=== PATIENT | female | born 1955 | race Caucasian/White ===

== ENCOUNTER → 2017-12-07 | Outpatient (CLI) | payer OTHER ==
[~2017-12-07] VITALS: Ht 165.1 cm; Wt 102.5 kg
[~2017-12-07] MED LIST: ANTIVERT25 MG PO; CIPRO500 MG PO; CYANOCOBALAM1000 MCG PO; FLOMAX0.4 MG PO; IBUPROFEN600 MG PO; LEXAPRO5 MG PO; LISINOPRIL-HCT1 EACH PO; LO-DOSE ASPIRIN81 M1 PO; MIRALAX255 GM PO; MOBIC15 MG PO; PERCOCET 5/31 TABLET PO; PROTONIX40 MG PO; VITAMIN D310000 UNI1 PO; ZOFRAN4 MG PO
[2017-12-07 10:34] LABS: HEMATOCRIT 47.2 % (36.0-46.0); HEMOGLOBIN 15.4 G/DL (11.9-15.5); MCH 28.2 PG (29.0-34.0); MCHC 32.6 G/DL (30.0-36.0); MCV 86.3 FL (83-99); PLATELET COUNT 414 K/uL (156-360); RBC DIS.WIDTH-CV 12.8 % (11.8-14.6); RBC DIS.WIDTH-SD 40.1 % (39-53); RED BLOOD COUNT 5.47 M/uL (3.80-5.20); WHITE BLOOD COUNT 11.9 K/uL (4.1-10.2)
[2017-12-07 10:40] LABS: INTER. NORMALIZED RATIO 1.1
[2017-12-07 10:43] LABS: PTT 25.9 SEC (25-37)
== END | disposition home or self-care (01) ==
LOC: AMB 10:04
PROVIDERS: Internal Medicine
PROC: 0DBE8ZX Excision of Large Intestine, Via Natural or Artificial Opening Endoscopic, Diagnostic (ICD-10-PCS; principal; 2017-12-07)
DX: K62.89 Other specified diseases of anus and rectum (principal); R19.7 Diarrhea, unspecified; K57.30 Diverticulosis of large intestine without perforation or abscess without bleeding; Z86.010 Personal history of colon polyps; D68.2 Hereditary deficiency of other clotting factors; D68.51 Activated protein C resistance; I10 Essential (primary) hypertension; K21.9 Gastro-esophageal reflux disease without esophagitis; E78.5 Hyperlipidemia, unspecified; E53.8 Deficiency of other specified B group vitamins; Z86.711 Personal history of pulmonary embolism; Z86.72 Personal history of thrombophlebitis; Z79.82 Long term (current) use of aspirin; Z80.3 Family history of malignant neoplasm of breast; Z82.49 Family history of ischemic heart disease and other diseases of the circulatory system
CPT/HCPCS: 85027; 85610; 85730; 88305; 93005; J2250